=== PATIENT | male | born 1985 ===

== ENCOUNTER 2019-10-31 14:09 | Emergency (ER) | payer OTHER ==
[~2019-10-31] VITALS: Ht 170.2 cm; Wt 64.4 kg
[~2019-10-31 14:09] MED LIST: GILTUSS TR TAB1 EACH PO; TRAMADOL HCL-AP1 TAB PO; TRUVADA TABLET1 TAB; ZYRTEC10 MG PO
[2019-10-31] MEDS ORDERED: VIREAD PO (14:23)
[2019-10-31] MEDS ORDERED: WELLBUTRIN SR150 MG PO (14:24)
[2019-10-31] MEDS ORDERED: DESCOVY 200-251 EACH PO (14:24)
[2019-10-31] MEDS ORDERED: CLONAZEPAM0.5 MG PO (14:25)
[2019-10-31] MEDS ORDERED: ESTAZOLAM2 MG PO (14:25)
[2019-10-31] MEDS ORDERED: CRESTOR10 MG PO (14:25)
== END 2019-10-31 16:52 | disposition home or self-care (01) ==
LOC: ER 14:09
DX: B34.9 Viral infection, unspecified (principal); R09.81 Nasal congestion

== ENCOUNTER 2021-04-27 16:49 | Emergency (ER) | payer OTHER ==
[~2021-04-27] VITALS: Ht 170.2 cm; Wt 69.9 kg
[~2021-04-27 16:49] MED LIST changes: +CLONAZEPAM0.5 MG PO; +CRESTOR10 MG PO; +DESCOVY 200-251 EACH PO; +ESTAZOLAM2 MG PO; +VIREAD PO; +WELLBUTRIN SR150 MG PO
[2021-04-27] MEDS ORDERED: PREDNISONE 20 MG (17:17)
[2021-04-27] MEDS ORDERED: TUSSIN (17:18)
[2021-04-27] MEDS ORDERED: LEVOFLOXACIN500 MG PO (19:16)
[2021-04-27] MEDS ORDERED: ZYRTEC10 MG PO (19:16)
[2021-04-27] MEDS ORDERED: TUSNEL LIQUID178 ML PO (19:16)
== END 2021-04-27 19:40 | disposition home or self-care (01) ==
LOC: ER 16:49
DX: R05 Cough (principal); Z03.818 Encounter for observation for suspected exposure to other biological agents ruled out; Z21 Asymptomatic human immunodeficiency virus [HIV] infection status; B20 Human immunodeficiency virus [HIV] disease